=== PATIENT | male | born 1980 | race Caucasian/White ===

== ENCOUNTER 2017-12-14 20:51 | Emergency (ER) | payer SELFPAY ==
[~2017-12-14] VITALS: Ht 182.9 cm; Wt 77.0 kg
[2017-12-14 20:57] VITALS: BP 154/88
== END 2017-12-14 22:15 | disposition left against medical advice (07) ==
LOC: ER 20:51
DX: Z04.8 Encounter for examination and observation for other specified reasons (principal); Z53.21 Procedure and treatment not carried out due to patient leaving prior to being seen by health care provider